=== PATIENT | male | born 1940 | race Caucasian/White ===

== ENCOUNTER 2018-07-22 05:26 | Inpatient (IN) | payer OTHER, MEDICARE ==
[2018-07-10 12:34] LABS: URINE BILIRUBIN NEGATIVE (Negative); URINE BLOOD TRACE (Negative); URINE CLARITY CLEAR; URINE COLOR YELLOW; URINE GLUCOSE-RANDOM* NEGATIVE (Negative); URINE KETONES NEGATIVE (Negative); URINE LEUKOCYTES-REFLEX NEGATIVE (Negative); URINE NITRITE-REFLEX NEGATIVE (Negative); URINE PROTEIN (DIPSTICK) NEGATIVE (Negative); URINE UROBILINOGEN 0.2 E.U./dl (0.2-1.0)
[2018-07-10 12:35] LABS: HEMATOCRIT 40.9 % (42.0-52.0); HEMOGLOBIN 13.9 gm/dL (14.0-18.0); MCH 31.5 pg (26.0-34.0); MCHC 33.9 g/dL (28.0-37.0); MCV 92.9 fL (80.0-100.0); RBC 4.4 mil/uL (4.50-6.00); RDW 12.8 % (10.5-14.5); WBC 9.7 thou/uL (4.0-11.0)
[2018-07-10 12:41] LABS: ALBUMIN 4.1 g/dL (3.4-5.0); CALCIUM 9.7 mg/dL (8.5-10.1)
[2018-07-10 12:45] LABS: PROTIME 10.5 Seconds (9.3-11.4)
[~2018-07-22] VITALS: Ht 180.3 cm; Wt 102.1 kg
--- NOTE | ~2018-07-22 | O ---
[facility] [place] [address] OPERATIVE REPORT Name: LINO BENOIT Room #: 420-P [facility] IN M.R.#: [id number] Admission: 07/22/18 ������������������ Attend Phys: Cuba Retana MD Discharge: ������������������ Date of : 39 Report #: [id number] THIS REPORT FOR: //name// CC: Matthew Retana DATE OF SERVICE: 07/22/2018 PREOPERATIVE DIAGNOSIS: Bilateral knee osteoarthritis. POSTOPERATIVE DIAGNOSIS: Bilateral knee osteoarthritis. PROCEDURES: 1. Left total knee arthroplasty using Navio robotic medical assistant prn. 2. Intra-articular cortisone injection, right knee. SURGEON: Cuba Retana MD FEEDER OPERATOR: Soraya Owens PA-C INDICATIONS FOR FEEDER OPERATOR: Throughout the case, extensive retraction and manipulation of the knee was required. This was afforded to me by my medical assistant prn. ANESTHESIA: LMA with an adductor canal block. IMPLANTS: Stevens [employer]hew size 7 Legion cobalt chrome posterior stabilized femur, size 6 tibia, size 9 polyethylene and size 38 patella. TOURNIQUET TIME: 77 minutes. ESTIMATED BLOOD LOSS: Less than 25 mL. COMPLICATIONS: None. SPECIMENS: None. CONDITION UPON LEAVING THE OPERATING ROOM: Stable. INDICATIONS FOR PROCEDURE: The patient is a 78-year-old gentleman with severe bilateral knee osteoarthritis who failed conservative treatment for this and after discussion with him, he elected for a left total knee arthroplasty. In addition, he was requesting a cortisone injection in his right knee while under anesthesia. DESCRIPTION OF PROCEDURE: Left lower extremity was marked in the preoperative holding area. Adductor canal block was placed by Anesthesia. IV Josefina was [facility] [address] [place] [address] OPERATIVE REPORT Name: LINO BENOIT Room #: 420-P ADM IN M.R.#: [id number] Admission: 07/22/18 ������������������ Attend Phys: Cuba Retana MD Discharge: ������������������ Date of : 39 Report #: [id number] given for preoperative antibiotics. He was brought to the Operating Room and placed in supine position on operating room table. LMA anesthesia was induced without complication. Tourniquet was placed on the left thigh. Left lower extremity was prepped and draped in normal sterile fashion. Timeout was performed properly identifying the patient and procedure as well as the instrumentation and implants. All in the Operating Room were in agreement. Left lower extremity was exsanguinated and tourniquet was inflated. Tourniquet time was 77 minutes. Standard midline approach to the knee was made with 10 blade through the skin. Dissection was taken down sharply to the fascia and deep flaps were developed medially and laterally. Fresh 10 blade was used to make a medial parapatellar arthrotomy and the knee was inspected. There was severe tricompartmental osteoarthritic change. The ACL and PCL were removed sharply. Reference pins were placed in the femur and the tibia and the knee was visually mapped using the [employer] robotic system. We sized the size 7 femur and a size 6 tibia with a 9 polyethylene. After acceptance of the intraoperative plan, the distal femoral cut was made with a Navio bur. The 5-in-1 cutting block was placed for the size 7 femur and anterior, posterior and chamfer cuts were made. After this, attention was turned to the tibia. The remainder of the menisci removed with Bovie cautery. The tibial resection was made using the tibial baseplate, which was placed using the Navio system. After this, flexion and extension gaps were checked and found to be tight medially. The medial osteophyte was removed from the tibia. A limited medial release was performed using the pie crust technique and this balanced the knee well. Tibia was sized, found to be a size 6. A size 6 tibial trial was placed, pinned and punched. A size 7 femoral trial was placed and the box cut was made. This was then trialed with a size 9 polyethylene. The knee was taken through range of motion, found to be stable, found to have a mm of laxity both medially and laterally, both distally as well as manually throughout a range of motion. A 9 mm was then resected from the posterior surface of the patella and a size 38 patellar trial button was placed. Knee was taken through range of motion, found to be stable, found to have good patellar tracking. Trial components were removed. Bony ends were thoroughly irrigated with normal saline. A final size 6 tibia, size 7 Legion cobalt chrome posterior stabilized femur and size 38 patella were cemented in place using standard cementation techniques. While the cement cured, a periarticular injection consisting of morphine, ropivacaine, epinephrine and Toradol was placed around the knee joint capsule. After the cement cured, the tourniquet was deflated. Hemostasis was obtained with Bovie cautery. A final size 9 polyethylene was placed. A gram of vancomycin was placed deep in the joint. Fascia was closed with 0 Vicryl, skin closed with 2-0 Vicryl and 3-0 Monocryl. Dermabond and a ESTEFANY dressing was applied. The patient tolerated this procedure well and went to recovery room under care of anesthesia postoperatively. ��������������������������������������������� ���������������������������������������� By: ��������������������������������������������� [id number] Cuba Retana MD /cristy
[~2018-07-22 05:26] MED LIST: FISH OIL 1,2001 EAC4 PO; FISH OIL PO; HYDROCHLOROTH12.5 M2 PO; HYDROCODONE-AP1 EAC6 PO; LISINOPRIL PO; LISINOPRIL40 MG PO; MEN'S MULTIVIT1 EAC1 PO; MOBIC7.5 MG PO; OSTEO BI-FLEX1 EAC1 PO; VITAMIN D31000 UNI2 PO; VITAMIN D5000 UNIT PO
[2018-07-22 11:15] VITALS: BP 139/70
[2018-07-22 16:56] VITALS: BP 141/63
--- NOTE | 2018-07-22 17:41 | NUR ---
ASSUMED CARE AT 1700, SHIFT ASSESSMENT DONE, MEDS GIVEN, VSS. DENIES PAIN, NAUSEA. ESTEFANY DRESSING TO LEFT KNEE C/D/I. RIGHT STEROID INJECITON SITE C/D/I. SCDs/BRENNAN HOSE IN PLACE. WILL CONTINUE TO ASSESS AND ASSIST WITH ADLs.
[2018-07-22 19:30] VITALS: BP 130/52
[2018-07-22 21:00] VITALS: BP 149/64
[2018-07-22 23:01] VITALS: BP 149/64
--- NOTE | 2018-07-23 03:58 | NUR ---
Assumed pt care at 1900,pt A/OX4.VSS.Pt POD#1 hasn't ambulated after surgery,voiding via urinal at night. Denies pain on assessment to left knee d/t canal block used during surgery. ESTEFANY dsg in place C/D/I,CMS intact to LLE. Knee high flo hose and SCDs in place. Fall precautions implemented and pt educated on fall safety. Resting quietly with eyes closed at this time no distress noted. Will continue to monitor pt.
[2018-07-23 05:04] VITALS: BP 109/54
[2018-07-23 05:43] LABS: HEMATOCRIT 32.2 % (42.0-52.0); HEMOGLOBIN 10.7 gm/dL (14.0-18.0); MCH 31.5 pg (26.0-34.0); MCHC 33.1 g/dL (28.0-37.0); RBC 3.39 mil/uL (4.50-6.00); RDW 12.9 % (10.5-14.5); WBC 11.7 thou/uL (4.0-11.0)
[2018-07-23 07:10] VITALS: BP 98/64
[2018-07-23] MEDS ORDERED: TRI-BUFFERED A325 M1 PO (07:41)
[2018-07-23] MEDS ORDERED: NEURONTIN 300300 M1 PO (07:41)
--- NOTE | 2018-07-23 12:59 | NUR ---
ASSUMED CARE AT 0700, SHIFT ASSESSMENT DONE, MEDS GIVEN, VSS. DENIES PAIN, PRN PAIN MED GIVEN BEFORE MORNING THERAPHY. DENIES ANY PAIN AFTERWARDS. PATIENT IS SUPPOSED TO BE DISCHARGING AFTER AFTERNOON THERAPHY. WILL CONTINUE TO ASSESS AND ASSIST WITH ADLs NEEDED.
--- NOTE | 2018-07-23 15:05 | NUR ---
PT ADMITTED RELATED TO LEFT TOTAL KNEE REPLACEMENT. CM REVIEWED CHART AND SPOKE WITH CARE TEAM. CM MET WITH PT AT BEDSIDE THIS DAY. PT IS A&O X4. CM ROLE INTRODUCED. PT INDICATED HE LIVES IN A HOUSE WITH ANOTHER INDIVIDUAL WITH 1 STEP TO ENTER AND 14 STEPS INSIDE. 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 CM NOTIFIED PROVIDER PLUS LIAISON AND A FWW WAS DELIVERED TO HIM. PT INDICATED HE IS SET UP WITH AN OP PT APPOINTMENT TOMORROW AT 7AM. IT IS ANTICIPATED THAT PT WILL LIKELY DC HOME THIS DAY. CM ABLE TO FOLLOW INDICATED WITH DC PLANNING.
[2018-07-23 15:10] VITALS: BP 98/46
[2018-07-23] MEDS ORDERED: HYDROCODONE-AP1 EAC6 PO (15:12)
[2018-07-23] MEDS ORDERED: MS CONTIN15 MG PO (15:12)
== END 2018-07-23 16:29 | disposition home or self-care (01) | DRG 470 ==
LOC: 4E 05:26 → TBA 05:26 → PRE 05:47 → OR 14:07 → EDSTATUS 14:08 → PRE 14:09 → 4E 16:55 → ENTRNSPT 07-23 16:22 → 4E 07-23 16:29
PROVIDERS: ADMIT Orthopaedic Surgery
DX: M17.12 Unilateral primary osteoarthritis, left knee (principal); Z79.899 Other long term (current) drug therapy; Z79.82 Long term (current) use of aspirin
CPT/HCPCS: 10783; 50010; 50101; 50415; 50954; 51130; 51225; 53000; 53078; 53364; 54118; 56527; 56528; 57095; 57103; 57110; 57127; 57180; 62110; 62900; 64039; 70005

== ENCOUNTER 2018-08-02 13:42 | Day surgery (SDC) | payer OTHER, MEDICARE ==
[~2018-08-02 13:42] MED LIST changes: +MS CONTIN15 MG PO; +NEURONTIN 300300 M1 PO; +TRI-BUFFERED A325 M1 PO
[2018-08-02 18:33] VITALS: BP 153/60
--- NOTE | 2018-08-02 18:43 | NUR ---
RECEIVED PT APPROX 1800. A/O. C/O PAIN MANAGED BY MEDS ORDERED. NO NOTED SOA. NO NV. ESTEFANY DRESSING CDI. LEFT KNEE SWELLING NOTED. GUILLERMO FEET +2 EDEMA. TOLERATING DIET. WILL CONT. TO MONITOR.
[2018-08-02 19:30] VITALS: BP 149/53
[2018-08-02 20:30] VITALS: BP 159/63
[2018-08-02 21:30] VITALS: BP 142/68
[2018-08-02 22:30] VITALS: BP 138/62
[2018-08-02 23:30] VITALS: BP 136/64
--- NOTE | 2018-08-03 02:43 | NUR ---
Assumed care of pt at 1900. Pt alert and oriented x4. Pain on left knee controlled. PICCO dressing clean and intact. BRENNAN hose and SCDs bilaterally. IVF and antibiotics administered. Call light within reach. Will continue to monitor and assist with needs.
[2018-08-03 03:50] VITALS: BP 135/64
[2018-08-03 05:31] LABS: HEMATOCRIT 30.5 % (42.0-52.0); HEMOGLOBIN 10.2 gm/dL (14.0-18.0); MCH 31.7 pg (26.0-34.0); MCHC 33.6 g/dL (28.0-37.0); MCV 94.5 fL (80.0-100.0); RBC 3.23 mil/uL (4.50-6.00); RDW 13.3 % (10.5-14.5); WBC 9.8 thou/uL (4.0-11.0)
[2018-08-03 08:00] VITALS: BP 142/56
--- NOTE | 2018-08-03 08:22 | NUR ---
ASSESMENT COMPLETED. VSS. A/O. C/O PAIN MANAGED BY MEDS ORDERED. NO NOTED SOA. NO NV. PITTING EDEMA BLE. PT RESTING IN BED. ESTEFANY DRESSING CDI. ANTICIPATING DC HOME TODAY. WILL CONT. TO MONITOR.
[2018-08-03 11:19] VITALS: BP 142/56
--- NOTE | 2018-08-03 11:42 | NUR ---
DC INSTRUCTIONS GIVEN TO PT. PT VERBALZIED UNDERSTANDING. WILL CONT. TO MONITOR.
--- NOTE | 2018-08-04 08:12 | O ---
[facility] [place] [address] OPERATIVE REPORT Name: LINO BENOIT Room #: DEP [facility].#: [id number] Admission: 08/02/18 ������������������ Attend Phys: Cuba Retana MD Discharge: 08/03/18 ������������������ Date of : 39 Report #: [id number] THIS REPORT FOR: //name// CC: Matthew Retana DATE OF SERVICE: 08/02/2018 PREOPERATIVE DIAGNOSES: 1. Left total knee arthroplasty. 2. Hematoma. POSTOPERATIVE DIAGNOSES: 1. Left total knee arthroplasty. 2. Hematoma. PROCEDURE: Evacuation left total knee arthroplasty hematoma. SURGEON: Cuba Retana MD. COIN MACHINE MECHANIC: Soraya Owens PA-C ANESTHESIA: LMA. COMPLICATIONS: None. SPECIMENS: None. ESTIMATED BLOOD: 50 mL. CONDITION UPON LEAVING THE OPERATING ROOM: Stable. INDICATIONS FOR PROCEDURE: The patient is a 78-year-old gentleman who is 11 days out from a left total knee arthroplasty. He presented to the office today with draining hematoma from his knee and after discussion with him and his family, they elected for evacuation of his left knee hematoma. DESCRIPTION OF PROCEDURE: Risks, benefits, alternatives, complications were discussed in detail with the patient including but not limited to risk of anesthesia; risk of damage to nerves, arteries, blood vessels; risk for continued bleeding, infection, need for reoperation. Informed consent was obtained from the patient. Left knee was appropriately marked in the preoperative holding area. IV Ancef was given for preoperative antibiotics. He was brought to the Operating Room and placed in the supine position on the operating room table. IV Ancef was given for preoperative antibiotics. LMA anesthesia was induced without complication. Tourniquet was placed on the left [address] [address] OPERATIVE REPORT Name: LINO BENOIT Room #: DEP [facility] M.R.#: [id number] Admission: 08/02/18 ������������������ Attend Phys: Cuba Retana MD Discharge: 08/03/18 ������������������ Date of : 39 Report #: [id number] thigh. Left lower extremity was prepped and draped in normal sterile fashion. Timeout was performed properly identifying the patient and procedure as well as the instrumentation. All in the Operating Room were in agreement. Previous incision was then opened with a 10 blade and a large hematoma was evacuated. The retinacular repair was evaluated and there was a small opening in the superior retinacular incision. This was opened with a 10 blade and the knee was then thoroughly irrigated both subfascial as well as subcuticular with a pulse lavage. After this, the retinacular layer was closed with 0 Vicryl, skin was closed with 2-0 Vicryl, 3-0 nylon and a ESTEFANY dressing was applied. The patient tolerated this procedure well and went to recovery room under care of Anesthesia postoperatively. ��������������������������������������������� <ELECTRONICALLY SIGNED> ���������������������������������������� By: Cuba Retana MD ��������������������������������������������� 08/04/18 0812 1718 2130 Cuba Retana MD /cristy
== END 2018-08-03 12:41 | disposition home or self-care (01) ==
LOC: OR 13:42 → TBA 13:47 → 4E 18:05 → OR 08-03 12:41
PROVIDERS: Orthopaedic Surgery
DX: M96.840 Postprocedural hematoma of a musculoskeletal structure following a musculoskeletal system procedure (principal); M17.0 Bilateral primary osteoarthritis of knee; Z96.652 Presence of left artificial knee joint; Z79.899 Other long term (current) drug therapy
CPT/HCPCS: 50010; 50101; 50415; 53078; 56527; 56528; 57095; 57103; 57116; 62110; 62900; 70005

== ENCOUNTER 2019-04-28 08:52 | Inpatient (IN) | payer OTHER, MEDICARE ==
[2019-04-23 10:06] LABS: HEMATOCRIT 41.4 % (42.0-52.0); HEMOGLOBIN 13.5 gm/dL (14.0-18.0); MCH 30.9 pg (26.0-34.0); MCHC 32.5 g/dL (28.0-37.0); RBC 4.36 mil/uL (4.50-6.00); RDW 13.4 % (10.5-14.5)
[2019-04-23 10:18] LABS: CALCIUM 9.2 mg/dL (8.5-10.1); POTASSIUM 3.9 mmol/L (3.5-5.1); URINE BILIRUBIN NEGATIVE (Negative); URINE BLOOD TRACE (Negative); URINE CLARITY CLEAR; URINE COLOR YELLOW; URINE GLUCOSE-RANDOM* NEGATIVE (Negative); URINE KETONES NEGATIVE (Negative); URINE LEUKOCYTES-REFLEX NEGATIVE (Negative); URINE NITRITE-REFLEX NEGATIVE (Negative); URINE PROTEIN (DIPSTICK) NEGATIVE (Negative); URINE UROBILINOGEN 0.2 E.U./dl (0.2-1.0)
[2019-04-23 10:19] LABS: PROTIME 10.3 Seconds (9.3-11.4)
[2019-04-23 10:23] LABS: ALBUMIN 3.9 g/dL (3.4-5.0)
[~2019-04-28] VITALS: Ht 180.3 cm; Wt 108.9 kg
[~2019-04-28 08:52] MED LIST changes: +MULTI VITAMIN1 EACH PO
[2019-04-28 09:55] VITALS: BP 148/74
[2019-04-28 11:50] VITALS: BP 138/74
[2019-04-28 12:20] VITALS: BP 119/71
[2019-04-28 13:20] VITALS: BP 128/78
--- NOTE | 2019-04-28 15:24 | NUR ---
ASSUMED CARE OF PT APPROX. 1400. PT A&OX4, VSS, DENIES PAIN. ESTEFANY DRESSING, BRENNAN HOSE AND SCDS IN PLACE. PATIENT HAS POLAR PACK. FLUIDS RUNNING ORDERED. PT TOLERATED PHYSICAL THERAPY. RIGHT LEG WARM, NO NUMBNESS OR SWELLING OUTSIDE OF NORMAL, SENSATION INTACT, FAINT PULSE FELT BILAT FEET. NO SIGNS DISTRESS, WILL CONTINUE TO MONITOR
[2019-04-28 15:50] VITALS: BP 124/50
[2019-04-28 19:40] VITALS: BP 118/51
--- NOTE | 2019-04-29 04:20 | NUR ---
1850 ASSUMED CARE OF PT AFTER BEDSIDE REPORT, PT WITH NO COMPLAINTS OF PAIN AT THIS TIME. ASSESSMENT 1999 ASSESSMENT COMPLETED SEE ASSESSMENT TAB. PT ENCORAGED TO COUGH DEEP BREATHE AND USE IS. PT ENCOURAGED TO CHANGE POSITIONS IN BED. POLAR CARE IN PLACE WITH FRANCOIS WRAP TO R KNEE, C/D/I, PEDAL PULSES PALPABLE BILATERALLY AT 2+ CLIENT IS USING URINAL TO VOID. ITEMS WITHIN REACH, CALL LIGHT WITH PT. FALL PRECAUTIONS IN PLACE. WILL CONTINUE TO MONITOR IV INFUSING TO RFA WITH NO DIFFICULTY.
[2019-04-29 04:25] VITALS: BP 137/71
[2019-04-29 07:11] LABS: HEMATOCRIT 34.5 % (42.0-52.0); MCH 30.5 pg (26.0-34.0); MCHC 31.9 g/dL (28.0-37.0); MCV 95.6 fL (80.0-100.0); RBC 3.61 mil/uL (4.50-6.00); RDW 13.5 % (10.5-14.5); WBC 16.6 thou/uL (4.0-11.0)
[2019-04-29 07:50] VITALS: BP 121/51
[2019-04-29] MEDS ORDERED: NEURONTIN 300300 M1 PO (09:52)
[2019-04-29] MEDS ORDERED: ASPIR 8181 MG PO (09:52)
[2019-04-29 14:51] VITALS: BP 121/51
--- NOTE | 2019-04-30 14:14 | O ---
[facility] [place] [address] OPERATIVE REPORT Name: LINO BENOIT Room #: 436-P [facility] IN M.R.#: [id number] Admission: 04/28/19 Attend Phys: Cuba Retana MD Discharge: 04/29/19 Date of : 39 Report #: [id number] THIS REPORT FOR: //name// CC: Matthew Retana DATE OF SERVICE: 04/28/2019 PREOPERATIVE DIAGNOSIS: Right knee osteoarthritis. POSTOPERATIVE DIAGNOSIS: Right knee osteoarthritis. PROCEDURE: Right total knee arthroplasty using Navio robotic assistance. SURGEON: Cuba Retana MD. CONCRETE PILE DRIVER OPERATOR: Soraya Owens PA-C. INDICATIONS FOR CONCRETE PILE DRIVER OPERATOR: Throughout the case, extensive retraction and manipulation of the knee was required. This was afforded to me by my assistant account executive. ANESTHESIA: LMA with an adductor canal block. IMPLANTS: Stevens [employer] size 7 Legion cobalt chrome posterior stabilized femur, a size 6 tibia, a size 9 polyethylene and a size 35 patella. TOURNIQUET TIME: 63 minutes. ESTIMATED BLOOD LOSS: 25 mL. COMPLICATIONS: None. SPECIMENS: None. CONDITION UPON LEAVING THE OPERATING ROOM: Stable. INDICATIONS FOR PROCEDURE: The patient is an 79-year-old gentleman with right knee osteoarthritis. He had failed conservative measures for this and after discussion with him, he elected for right total knee arthroplasty. DESCRIPTION OF PROCEDURE: Risks, benefits, alternatives, complications were discussed in detail with the patient including but not limited to risk of anesthesia, risk of damage to nerves, arteries, blood vessels, risk for infection, bleeding, risk for continued knee pain and need for reoperation. Informed consent was obtained from the patient. The right knee was appropriately marked in the preoperative holding area. IV Ancef was given for [address] [address] OPERATIVE REPORT Name: LION BENOIT Room #: 436-P [facility] IN [facility].#: [id number] Admission: 04/28/19 Attend Phys: Cuba Retana MD Discharge: 04/29/19 Date of : 39 Report #: [id number] preoperative antibiotics. Adductor canal block was placed by anesthesia. He was brought to the operating room and placed in the supine position on the operating room table. LMA anesthesia was induced without complication. Tourniquet was placed on the right thigh. Right lower extremity was prepped and draped in normal sterile fashion. Timeout was performed properly identifying the patient and procedure as well as the instrumentation and implants. All in the operating room were in agreement. Right lower extremity was exsanguinated, tourniquet was inflated. Tourniquet time was 63 minutes. Standard midline approach to the knee was made with 10 blade through the skin. Dissection was taken down sharply to the fascia and deep flaps were developed medially and laterally. Fresh 10 blade was used to make a medial parapatellar arthrotomy and the knee was inspected. There was severe tricompartment osteoarthritis. ACL and PCL were removed sharply. Reference pins were placed in the femur and the tibia and the knee was digitally mapped using the [employer] robotic system. Intraoperative plan was made and we sized the size 7 femur with a size 6 tibia and an 11 spacer. After acceptance of the intraoperative plan, the distal femoral cut was made with a Navio bur. The size 7 four-in-one cutting block was placed on the femur and anterior, posterior and chamfer cuts were made. After this, attention was turned to the tibia. The remainder of the menisci removed with Bovie cautery. Tibial resection guide was pinned in place using the Navio for placement and tibial resection was made. After this, flexion and extension gaps were checked and found to have good balance in flexion and extension both medially and laterally. After this, tibia was sized, found to be a size 6. A size 6 tibial trial was placed, pinned and punched. A size 7 femoral trial was placed and the box cut was made. This was then trialed with a size 9 polyethylene. Knee was taken through range of motion, found to have good balance medially and laterally, both in flexion and extension throughout range of motion. After this, 9 mm was resected from the posterior surface of the patella and a size 35 patellar trial button was placed. The knee was taken through range of motion, found to have good patellar tracking. Trial components were removed. Bony ends were thoroughly irrigated with normal saline. A final size 6 tibia, size 7 Legion cobalt chrome posterior stabilized femur and a size 35 patella were cemented in place using standard cementation techniques. While the cement cured, a periarticular injection consisting of morphine, ropivacaine, epinephrine and Toradol was placed around the knee joint capsule. After the cement cured, the tourniquet was deflated. Hemostasis was obtained with Bovie cautery. Final size 9 polyethylene was placed. A gram of vancomycin was placed deep in the joint. Fascia was closed with 0 Vicryl, skin was closed with 2-0 Vicryl and skin antonio and a ESTEFANY dressing. The patient tolerated this procedure well and went to the recovery room under care of anesthesia postoperatively. <ELECTRONICALLY SIGNED> By: Cuba Retana MD 04/30/19 1414 1634 1723 Cuba Retana MD /nt
== END 2019-04-29 16:40 | disposition home or self-care (01) | DRG 470 ==
LOC: 4S 08:52 → TBA 08:52 → PRE 09:33 → 4S 13:31 → PRE 20:54 → ENTRNSPT 04-29 15:27 → EDTRNSPTSTS 04-29 15:38 → 4S 04-29 16:40
PROVIDERS: ADMIT Orthopaedic Surgery
PROC: 8E0Y0CZ Robotic Assisted Procedure of Lower Extremity, Open Approach (ICD-10-PCS; principal; 2019-04-28)
PROC: 0SRC0J9 Replacement of Right Knee Joint with Synthetic Substitute, Cemented, Open Approach (ICD-10-PCS; principal; 2019-04-28)
DX: M17.11 Unilateral primary osteoarthritis, right knee (principal); I10 Essential (primary) hypertension; Z82.49 Family history of ischemic heart disease and other diseases of the circulatory system; Z79.899 Other long term (current) drug therapy
CPT/HCPCS: 10102; 50010; 50101; 50415; 50954; 51130; 51225; 51320; 51412; 52001; 52282; 53000; 53078; 53364; 56528; 57095; 57103; 57110; 57127; 57180; 62110; 62900; 64042; 70005